=== PATIENT | female | born 1985 ===

== ENCOUNTER 2018-02-06 05:44 | Inpatient (IN) | payer OTHER ==
[2018-02-06 06:12] VITALS: BMI 35.2
[2018-02-06 06:49] LABS: Amnisure Internal Control QC ACCEPTABLE (ACCEPTABLE); Amnisure Test No Membranes Rupture (No Rupture)
[2018-02-06] MEDS ORDERED: Lidocaine 1% (PF) 30 ML VIAL SC PRN (07:47)
[2018-02-06] MEDS ORDERED: Ibuprofen 800 MG TAB PO PRN (07:47)
[2018-02-06] MEDS ORDERED: NS / Oxytocin 40 units/1000ml 1,000 ML IV PRN (07:47)
[2018-02-06] MEDS ORDERED: Ondansetron PF 4 MG/2 ML Vial IVP PRN ×3 (07:47→10:36)
[2018-02-06] MEDS ORDERED: Lactated Ringer's 1,000 ML IV SCH ×2 (08:00)
[2018-02-06 08:09] LABS: Hemoglobin 10.6 g/dL (12.0-16.0); Mean Corpuscular HGB CONC 34.4 g/dL (32.0-36.0); Mean Platelet Volume 8.9 fL (7.4-10.4); Platelet Count 345 thou/uL (130-400); RBC Distribution Width 14.1 % (11.5-14.5); Red Blood Cell (RBC) Count 3.55 mill/uL (4.20-5.40)
[2018-02-06] MEDS ORDERED: Fentanyl 4 mcg/Bup 0.1% Cadd 100 ML ONE (08:36)
[2018-02-06 08:46] LABS: HBSAg Index 0.18 S/CO (0-0.99); Hep B Surf Ag Non-Reactive S/CO (NonReactive)
[2018-02-06 08:51] LABS: Syphilis Antibody Nonreactive (Nonreactive); Syphilis Antibody Index 0.08 S/CO (<1.00 Non-Reactive)
[2018-02-06] MEDS ORDERED: Lactated Ringer's 500 ML IV PRN (08:52)
[2018-02-06] MEDS ORDERED: diphenhydrAMINE 50 MG/ML VIAL IVP PRN (08:52)
[2018-02-06] MEDS ORDERED: Acetaminophen 325 MG TAB PO PRN (08:52)
[2018-02-06] MEDS ORDERED: Eucerin (Mineral Oil/Petrolatum,White) 30 gm Jar TOP PRN (08:52)
[2018-02-06] MEDS ORDERED: Naloxone HCl 0.4 mg/ml Vial IVP PRN ×2 (08:52)
[2018-02-06] MEDS ORDERED: Promethazine HCl 25 MG/ML VIAL IM PRN (08:52)
[2018-02-06] MEDS ORDERED: ePHEDrine/0.9% NaCl/PF SYRINGE 50 mg/10 ml SLOW IVP PRN (08:52)
[2018-02-06] MEDS ORDERED: Communication Order-Pharmacy FS SCH (09:00)
[2018-02-06] MEDS ORDERED: Fentanyl 4 mcg/Bupivacaine 0.1% Cassette 100 ML EPIDURAL SCH (09:00)
[2018-02-06] MEDS ORDERED: NS / Oxytocin 40 units/1000ml 1,000 ML ONE (10:17)
[2018-02-06] MEDS ORDERED: Lidocaine 1% (PF) 30 ML VIAL ONE (10:17)
[2018-02-06] MEDS ORDERED: Lanolin Ointment 7 GM TUBE TOP PRN (10:36)
[2018-02-06] MEDS ORDERED: Zolpidem Tartrate 5 MG TAB PO PRN (10:36)
[2018-02-06] MEDS ORDERED: Adacel (T-DAP) 0.5 ML VIAL IM ONE (10:36)
[2018-02-06] MEDS ORDERED: Benzocaine/Menthol 20-0.5% 60 ML CAN TOP PRN (10:36)
[2018-02-06] MEDS ORDERED: Bisacodyl 10 MG SUPP PR PRN (10:36)
[2018-02-06] MEDS ORDERED: Preparation H Ointment 28 GM TUBE PR PRN (10:36)
[2018-02-06] MEDS ORDERED: Milk Of Magnesia 30 ML UDCUP PO PRN (10:36)
[2018-02-06] MEDS ORDERED: Misoprostol 200 MCG TAB VAG PRN (10:36)
[2018-02-06] MEDS ORDERED: diphenhydrAMINE 25 MG CAP PO PRN (10:36)
[2018-02-06] MEDS ORDERED: Acetaminophen/Codeine 30-300mg Tablet PO PRN (10:36)
[2018-02-06] MEDS ORDERED: NS / Oxytocin 40 units/1000ml 1,000 ML IV SCH (10:45)
[2018-02-06] MEDS: Ibuprofen 800 MG TAB PO SCH ×2 (13:54→21:21)
[2018-02-06] MEDS: Ferrous Sulfate 325 MG TAB PO SCH (14:38)
[2018-02-06] MEDS: Acetaminophen/Codeine 30-300mg Tablet PO PRN ×2 (18:10→23:11)
[2018-02-06] MEDS: Docusate Calcium (SURFAK) 240 MG CAP PO SCH (21:21)
[2018-02-07 06:15] LABS: Hemoglobin 9.4 g/dL (12.0-16.0); Mean Corpuscular HGB CONC 32.6 g/dL (32.0-36.0); Mean Corpuscular Hemoglobin 29.1 pg (27.0-31.0); Mean Corpuscular Volume 89.2 fL (78.0-98.0); Mean Platelet Volume 8.9 fL (7.4-10.4); Platelet Count 317 thou/uL (130-400); RBC Distribution Width 14.5 % (11.5-14.5); Red Blood Cell (RBC) Count 3.23 mill/uL (4.20-5.40); White Blood Cell (WBC) Count 15.3 thou/uL (4.8-10.8)
[2018-02-07] MEDS: Ibuprofen 800 MG TAB PO SCH ×2 (07:19→14:22)
[2018-02-07] MEDS: Ferrous Sulfate 325 MG TAB PO SCH (08:32)
[2018-02-07] MEDS: Docusate Calcium (SURFAK) 240 MG CAP PO SCH (08:32)
[2018-02-07] MEDS: Acetaminophen/Codeine 30-300mg Tablet PO PRN ×2 (08:35→14:28)
[2018-02-07] MEDS ORDERED: Prenatal Vitamin 1 TAB PO SCH (09:00)
[2018-02-07 09:20] VITALS: BP 110/67; TEMP 98.5
== END 2018-02-07 16:05 | disposition home or self-care (01) | DRG 807 ==
LOC: L&D/OP 05:44 → L&D 07:31 → 3SW 13:59
PROVIDERS: ADMIT Obstetrics & Gynecology; ATTEND Obstetrics & Gynecology
PROC: 10E0XZZ Delivery of Products of Conception, External Approach (ICD-10-PCS; principal; 2018-02-06)
PROC: 0KQM0ZZ Repair Perineum Muscle, Open Approach (ICD-10-PCS; 2018-02-06)
PROC: 6A550ZT Pheresis of Cord Blood Stem Cells, Single (ICD-10-PCS; 2018-02-06)
PROC: 10907ZC Drainage of Amniotic Fluid, Therapeutic from Products of Conception, Via Natural or Artificial Opening (ICD-10-PCS; 2018-02-06)
DX: O34.211 Maternal care for low transverse scar from previous cesarean delivery (principal); Z37.0 Single live birth; Z3A.39 39 weeks gestation of pregnancy; O70.1 Second degree perineal laceration during delivery; O69.81X0 Labor and delivery complicated by cord around neck, without compression, not applicable or unspecified
CPT/HCPCS: 36415; 51702; 84112; 85027; 86780; 86850; 86900; 86901; 87340; 90715; 99285; J2001